=== PATIENT | male | born 1945 | race African-American/Black ===

== ENCOUNTER 2025-01-20 16:50 | Emergency (ER) | payer OTHER ==
[~2025-01-20] VITALS: Ht 177.8 cm; Wt 80.0 kg
[2025-01-20 16:53] VITALS: O2SAT 100
[2025-01-20 17:27] LABS: BASOPHILS % 0.4 % (0.0-2.0); EOSINOPHILS % 2.3 % (0.0-5.0); HEMATOCRIT. 27.3 % (42.0-52.0); HEMOGLOBIN. 9.1 g/dL (14.0-18.0); LYMPHOCYTES % 29.9 % (20.0-50.0); MEAN PLATELET VOLUME 8.1 fl (7.4-10.4); MONOCYTES % 6.9 % (2.0-8.0); NEUTROPHILS % 60.5 % (40.0-76.0); PLATELET 194 x1000/uL (130-400); RED BLOOD CELL COUNT 2.88 mill/uL (4.7-6.1); RED CELL DISTRIBUTION WIDTH 15.4 % (11.6-14.6)
[2025-01-20 17:39] LABS: CREATININE 1.7 mg/dL (0.6-1.3)
[2025-01-20 17:40] LABS: TROPONIN I HIGH SENSITIVITY 48 ng/L (3.0-53); UREA NITROGEN BLOOD 15 mg/dL (9-23)
[2025-01-20 17:41] LABS: ASPARTATE AMINOTRANSFERASE 18 IU/L (<34)
[2025-01-20 17:42] LABS: BILIRUBIN DIRECT 0.2 mg/dL (<=3.0); BILIRUBIN TOTAL 0.6 mg/dL (0.1-1.0); PROTEIN TOTAL 6.2 g/dL (6.0-8.3)
[2025-01-20 18:49] VITALS: BP 166/70; PULSE 62; RESP 14; TEMP 37; O2SAT 98
== END 2025-01-20 18:50 | disposition left against medical advice (07) ==
LOC: ER 16:50 → CMPBEDREQ 01-21 07:17
DX: R56.9 Unspecified convulsions (principal); N17.9 Acute kidney failure, unspecified; I10 Essential (primary) hypertension
CPT/HCPCS: 36415; 71045; 80048; 80076; 80320; 83735; 84484; 85025; 93005; 99285; G0480